=== PATIENT | female | born 1965 | race Caucasian/White ===

== ENCOUNTER 2019-09-04 15:11 | Inpatient (IN) ==
[2019-09-04 15:54] LABS: Hematocrit 34.1 % (35.3-44.9); Hemoglobin 11.6 g/dL (11.5-15.4); Immature Granulocytes % 0.5 % (0-4); Lymphocytes # 0.8 K/mcL (0.6-4.6); Lymphocytes % 13.2 %; Mean Corpuscular Hemoglobin 35.5 pg (28.0-33.3); Mean Corpuscular Volume 104.3 fL (83.0-100.0); Mean Platelet Volume 9.9 fL (9.4-12.4); Monocytes # 0.6 K/mcL (0.0-1.3); Monocytes % 9.3 %; Neutrophils # 4.6 K/mcL (1.6-8.9); Platelet Count 166 K/mcL (140-400); Red Blood Count 3.27 M/mcL (3.82-4.97); Red Cell Distribution Width 18.1 % (11.5-14.5)
[2019-09-04] MEDS ORDERED: Isovue-370 500 ML BOTTLE IVP ONE ×2 (16:10→17:08)
[2019-09-04] MEDS ORDERED: *HR* HYDROmorphone (PF) 1 MG/ML SYRINGE IVP ONE ×2 (16:10→18:21)
[2019-09-04] MEDS ORDERED: Ondansetron 4 MG/2 ML VIAL IVP ONE (16:10)
[2019-09-04] MEDS ORDERED: 0.9 % Sodium Chloride 1,000 ML IVC ONE (16:10)
[2019-09-04 16:14] LABS: Alanine Aminotransferase 68 Units/L (7-52); Albumin 4.2 g/dL (3.5-5.7); Albumin/Globulin Ratio 1.4 (1.1-2.2); Alkaline Phosphatase 62 Units/L (34-104); Aspartate Amino Transferase 55 Units/L (13-39); BUN/Creatinine Ratio 11 (6-26); Bilirubin,Total 0.4 mg/dL (0.3-1.0); Blood Urea Nitrogen 8 mg/dL (6-20); Calcium 9.2 mg/dL (8.6-10.3); Carbon Dioxide 25 mEq/L (23-29); Chloride 98 mEq/L (98-107); Globulin 2.9 g/dL (2.4-3.5); Glucose 140 mg/dL (70-105); Osmolality,Calculated 281 (280-300); Potassium 3.6 mEq/L (3.5-5.1); Sodium 135 mEq/L (136-145); Total Protein 7.1 g/dL (6.4-8.9); Troponin I < 0.03 ng/mL (< 0.04); eGFR For African Americans > 60 (> 60); eGFR For Non-African Americans > 60 (> 60)
[2019-09-04] MEDS: *HR* LORazepam 2 MG/ML VIAL IVP ONE (16:23)
[2019-09-04 16:47] LABS: Bilirubin,Urine Negative (Negative); Blood,Urine Negative (Negative); Clarity,Urine Clear (Clear); Color,Urine Yellow (Yellow); Glucose,Urine (UA) Normal (Normal); Ketones,Urine Negative (Negative); Leukocyte Esterase,Urine Negative (Negative); Nitrite,Urine Negative (Negative); Protein,Urine Negative (Neg-Trace); Urobilinogen,Urine Normal (Normal)
[2019-09-04 17:08] LABS: Albumin 3.8 g/dL (3.5-5.7); Albumin/Globulin Ratio 1.6 (1.1-2.2); Bilirubin,Direct 0.1 mg/dL (0.0-0.2); Bilirubin,Indirect 0.2 mg/dL (0.0-1.0); Bilirubin,Total 0.3 mg/dL (0.3-1.0); Globulin 2.4 g/dL (2.4-3.5); Total Protein 6.2 g/dL (6.4-8.9)
[2019-09-04 17:52] LABS: Uric Acid 5.1 mg/dL (2.3-7.6)
[2019-09-04] MEDS ORDERED: Naloxone 0.4 MG/ML INJ IVP PRN (21:17)
[2019-09-04] MEDS: lamoTRIgine 25 MG TABLET PO SCH (21:43)
[2019-09-04] MEDS: predniSONE 5 MG TABLET PO SCH (21:43)
[2019-09-04] MEDS: *HR* Heparin 5,000 UNIT/ML VIAL SQ SCH (21:43)
[2019-09-04] MEDS: *HR* LORazepam 1 MG TABLET PO SCH (21:43)
[2019-09-04] MEDS: *HR* OxyCODONE/APAP 10/325 TABLET PO PRN (21:45)
[2019-09-04] MEDS: *HR* OxyCODONE ER (12 HR) 40 MG TABLET PO SCH (22:36)
[2019-09-05 02:48] LABS: Basophils % 0.2 %; Eosinophils % 0.5 %; Hematocrit 29.2 % (35.3-44.9); Hemoglobin 9.4 g/dL (11.5-15.4); Immature Granulocytes % 0.4 % (0-4); Immature Reticulocyte % 29.6 % (11.0-38.0); Lymphocytes # 1.1 K/mcL (0.6-4.6); Lymphocytes % 19.1 %; Mean Corpuscular HGB Conc 32.2 g/dL (31.6-35.5); Mean Corpuscular Hemoglobin 35.2 pg (28.0-33.3); Mean Corpuscular Volume 109.4 fL (83.0-100.0); Mean Platelet Volume 9.7 fL (9.4-12.4); Monocytes # 0.7 K/mcL (0.0-1.3); Monocytes % 11.8 %; Neutrophils # 3.8 K/mcL (1.6-8.9); Platelet Count 122 K/mcL (140-400); Red Blood Count 2.67 M/mcL (3.82-4.97); Red Cell Distribution Width 18.2 % (11.5-14.5); Retculocyte # 0.13 M/mcL (0.05-0.10); Reticulocyte % 4.8 % (1.6-2.8); White Blood Count 5.6 K/mcL (4.3-11.1)
[2019-09-05 02:51] LABS: INR 1.3; Prothrombin Time 14.2 Seconds (9.4-12.1)
[2019-09-05 03:11] LABS: Alanine Aminotransferase 53 Units/L (7-52); Albumin 3.6 g/dL (3.5-5.7); Albumin/Globulin Ratio 1.6 (1.1-2.2); Alkaline Phosphatase 51 Units/L (34-104); Aspartate Amino Transferase 40 Units/L (13-39); BUN/Creatinine Ratio 12 (6-26); Bilirubin,Total 0.4 mg/dL (0.3-1.0); Blood Urea Nitrogen 6 mg/dL (6-20); Calcium 8.5 mg/dL (8.6-10.3); Carbon Dioxide 24 mEq/L (23-29); Chloride 104 mEq/L (98-107); Chol/HDL Ratio 2.8 (0-4.9); Cholesterol 124 mg/dL (< 200); Globulin 2.3 g/dL (2.4-3.5); Glucose 122 mg/dL (70-105); HDL Cholesterol 44 mg/dL (40-59); LDL Cholesterol,Calculated 62 mg/dL (0-99); Lactate Dehydrogenase 278 Units/L (140-271); Magnesium 1.7 mg/dL (1.6-2.6); Osmolality,Calculated 283 (280-300); Phosphorous 3.1 mg/dL (2.7-4.5); Potassium 3.6 mEq/L (3.5-5.1); Sodium 137 mEq/L (136-145); Total Protein 5.9 g/dL (6.4-8.9); Triglycerides 89 mg/dL (< 150); eGFR For African Americans > 60 (> 60); eGFR For Non-African Americans > 60 (> 60)
[2019-09-05 03:24] LABS: Thyroid Stimulating Hormone 0.704 mcIU/mL (0.340-5.600)
[2019-09-05 03:28] LABS: Folate 12.4 ng/mL (3.0-16.0)
[2019-09-05] MEDS: *HR* OxyCODONE/APAP 10/325 TABLET PO PRN ×4 (03:45→22:48)
[2019-09-05] MEDS ORDERED: *HR* OxyCODONE ER (12 HR) 40 MG TABLET PO SCH (06:00)
[2019-09-05] MEDS: *HR* Heparin 5,000 UNIT/ML VIAL SQ SCH ×3 (06:29→20:05)
[2019-09-05] MEDS: *HR* LORazepam 0.5 MG TABLET PO PRN ×2 (09:00→17:45)
[2019-09-05] MEDS: *HR* OxyCODONE ER (12 HR) 40 MG TABLET PO SCH ×2 (09:00→20:05)
[2019-09-05] MEDS: lamoTRIgine 25 MG TABLET PO SCH ×2 (09:01→20:05)
[2019-09-05] MEDS: BuPROPion SR (12 HR) 100 MG TABLET PO SCH (09:01)
[2019-09-05] MEDS: predniSONE 5 MG TABLET PO SCH ×2 (09:01→20:05)
[2019-09-05] MEDS: Ondansetron ODT 4 MG TAB.RAPDIS PO PRN (10:01)
[2019-09-05] MEDS: Ringers Solution, Lactated 1,000 ML IVC SCH (13:23)
[2019-09-05] MEDS ORDERED: *HR* Promethazine 25 MG/ML VIAL IVP PRN (14:01)
[2019-09-05] MEDS: Sennosides/Docusate Sodium TABLET PO SCH ×2 (14:38→20:05)
[2019-09-05] MEDS: *HR* LORazepam 1 MG TABLET PO SCH (20:05)
[2019-09-06] MEDS: *HR* LORazepam 0.5 MG TABLET PO PRN ×3 (00:06→14:27)
[2019-09-06] MEDS: *HR* OxyCODONE/APAP 10/325 TABLET PO PRN (03:40)
[2019-09-06 04:31] LABS: Basophils % 0.1 %; Eosinophils % 0.5 %; Hematocrit 31.6 % (35.3-44.9); Hemoglobin 10.3 g/dL (11.5-15.4); Immature Granulocytes % 0.5 % (0-4); Lymphocytes # 1.7 K/mcL (0.6-4.6); Lymphocytes % 20.1 %; Mean Corpuscular HGB Conc 32.6 g/dL (31.6-35.5); Mean Corpuscular Volume 107.5 fL (83.0-100.0); Mean Platelet Volume 10.2 fL (9.4-12.4); Monocytes # 0.9 K/mcL (0.0-1.3); Monocytes % 10.6 %; Neutrophils # 5.7 K/mcL (1.6-8.9); Nucleated Red Blood Cells 0.2 /100 WBC (0); Platelet Count 197 K/mcL (140-400); Red Blood Count 2.94 M/mcL (3.82-4.97); Red Cell Distribution Width 18.5 % (11.5-14.5); Segmented Neutrophils % 68.2 %; White Blood Count 8.3 K/mcL (4.3-11.1)
[2019-09-06 04:46] LABS: BUN/Creatinine Ratio 14 (6-26); Blood Urea Nitrogen 9 mg/dL (6-20); Calcium 9.5 mg/dL (8.6-10.3); Carbon Dioxide 25 mEq/L (23-29); Chloride 99 mEq/L (98-107); Glucose 156 mg/dL (70-105); Lipase 366 Units/L (11-82); Osmolality,Calculated 288 (280-300); Potassium 3.8 mEq/L (3.5-5.1); Sodium 138 mEq/L (136-145); eGFR For African Americans > 60 (> 60); eGFR For Non-African Americans > 60 (> 60)
[2019-09-06] MEDS: Ringers Solution, Lactated 1,000 ML IVC SCH (05:25)
[2019-09-06] MEDS: *HR* Heparin 5,000 UNIT/ML VIAL SQ SCH ×2 (06:07→12:16)
[2019-09-06] MEDS: Sennosides/Docusate Sodium TABLET PO SCH (08:18)
[2019-09-06] MEDS: *HR* OxyCODONE ER (12 HR) 40 MG TABLET PO SCH (08:18)
[2019-09-06] MEDS: BuPROPion SR (12 HR) 100 MG TABLET PO SCH (08:18)
[2019-09-06] MEDS: lamoTRIgine 25 MG TABLET PO SCH (08:19)
[2019-09-06] MEDS: predniSONE 5 MG TABLET PO SCH (08:20)
[2019-09-06] MEDS: Ondansetron ODT 4 MG TAB.RAPDIS PO PRN (08:34)
[2019-09-06] MEDS ORDERED: *HR* LORazepam 2 MG/ML VIAL IVP ONE (09:41)
[2019-09-06] MEDS: *HR* LORazepam 2 MG/ML VIAL IVP ONE (10:17)
[2019-09-06 11:03] LABS: Estimated Average Glucose 140 mg/dl
[2019-09-06] MEDS ORDERED: *HR* FentaNYL (PF) 100 MCG/2 ML VIAL IVP ONE (11:23)
[2019-09-06 11:42] VITALS: BP 160/107
[2019-09-06] MEDS ORDERED: *HR* OxyCODONE Immed Rel 15 MG TABLET PO PRN (12:31)
[2019-09-06] MEDS ORDERED: Lactulose Oral Soln 20 GM/30 ML UDC PO PRN (12:39)
[2019-09-06] MEDS ORDERED: Milk and Molasses Enema 200 ML RC ONE (14:00)
[2019-09-06] MEDS ORDERED: Sennosides/Docusate Sodium TABLET PO SCH (21:00)
== END 2019-09-06 15:01 | disposition hospice, home (50) | DRG 861 ==
LOC: 3BNU 15:11 → EMEROOARM 15:11 → 3BNU 19:45
PROVIDERS: ADMIT Internal Medicine; ATTEND Internal Medicine

== ENCOUNTER 2019-09-24 11:14 | Inpatient (IN) ==
[2019-09-24 16:21] LABS: Clarity,Urine Slightly Cloudy (Clear); Color,Urine Orange (Yellow)
[2019-09-24 16:22] LABS: Bacteria,Urine Few per hpf (None-Few); Squamous Epithelial Cell,Urine Few per lpf (None-Few)
[2019-09-24] MEDS: *HR* OxyCODONE Immed Rel 15 MG TABLET PO PRN (16:57)
[2019-09-24] MEDS: predniSONE 5 MG TABLET PO SCH (20:25)
[2019-09-24] MEDS: Sennosides/Docusate Sodium TABLET PO SCH (20:25)
[2019-09-24] MEDS: lamoTRIgine 25 MG TABLET PO SCH (20:26)
[2019-09-24] MEDS: Morphine Sulfate ER (12 HR) 30 MG TABLET.ER PO SCH (20:26)
[2019-09-25] MEDS: *HR* OxyCODONE Immed Rel 15 MG TABLET PO PRN ×5 (00:54→20:06)
[2019-09-25] MEDS: Morphine Sulfate ER (12 HR) 30 MG TABLET.ER PO SCH ×2 (06:18→16:56)
[2019-09-25] MEDS: predniSONE 10 MG TABLET PO SCH (07:45)
[2019-09-25] MEDS: BuPROPion SR (12 HR) 100 MG TABLET PO SCH (07:45)
[2019-09-25] MEDS: Sennosides/Docusate Sodium TABLET PO SCH ×2 (07:45→20:06)
[2019-09-25] MEDS: Metoprolol XL (24 HR) Succ 50 MG TAB.ER.24H PO SCH (07:45)
[2019-09-25] MEDS: lamoTRIgine 25 MG TABLET PO SCH ×2 (07:45→20:06)
[2019-09-25] MEDS: cefTRIAXone 1,000 MG in Water for inj. (sterile) 10 ML IVP SCH (13:30)
[2019-09-25] MEDS: predniSONE 5 MG TABLET PO SCH (16:57)
[2019-09-26] MEDS: *HR* OxyCODONE Immed Rel 15 MG TABLET PO PRN ×6 (03:08→21:47)
[2019-09-26] MEDS: Morphine Sulfate ER (12 HR) 30 MG TABLET.ER PO SCH ×3 (05:34→19:32)
[2019-09-26] MEDS: BuPROPion SR (12 HR) 100 MG TABLET PO SCH (08:03)
[2019-09-26] MEDS: predniSONE 10 MG TABLET PO SCH (08:03)
[2019-09-26] MEDS: Sennosides/Docusate Sodium TABLET PO SCH ×2 (08:04→19:29)
[2019-09-26] MEDS: lamoTRIgine 25 MG TABLET PO SCH ×2 (08:04→19:33)
[2019-09-26] MEDS: Metoprolol XL (24 HR) Succ 50 MG TAB.ER.24H PO SCH (08:04)
[2019-09-26] MEDS: cefTRIAXone 1,000 MG in Water for inj. (sterile) 10 ML IVP SCH (08:04)
[2019-09-26] MEDS ORDERED: *HR* HYDROmorphone 2 MG/ML SYRINGE IVP ONE (11:58)
[2019-09-26] MEDS: Trolamine Salicylate/Aloe Vera 85 APPL/85 GM TUBE TP PRN (16:39)
[2019-09-26] MEDS: predniSONE 5 MG TABLET PO SCH (17:46)
[2019-09-26] MEDS: Saliva Stimulant 100ml BOTTLE PO PRN ×2 (19:27→21:48)
[2019-09-26] MEDS: *HR* LORazepam 1 MG TABLET PO PRN (21:48)
[2019-09-27] MEDS: *HR* OxyCODONE Immed Rel 15 MG TABLET PO PRN ×5 (00:24→21:26)
[2019-09-27] MEDS: Trolamine Salicylate/Aloe Vera 85 APPL/85 GM TUBE TP PRN ×2 (02:44→19:49)
[2019-09-27] MEDS: Morphine Sulfate ER (12 HR) 30 MG TABLET.ER PO SCH (04:28)
[2019-09-27] MEDS: *HR* HYDROmorphone (PF) 1 MG/ML SYRINGE IVP PRN ×5 (05:03→19:40)
[2019-09-27] MEDS: predniSONE 10 MG TABLET PO SCH (07:53)
[2019-09-27] MEDS: lamoTRIgine 25 MG TABLET PO SCH ×2 (07:53→19:43)
[2019-09-27] MEDS: BuPROPion SR (12 HR) 100 MG TABLET PO SCH (07:53)
[2019-09-27] MEDS: Sennosides/Docusate Sodium TABLET PO SCH ×2 (07:53→19:44)
[2019-09-27] MEDS: Metoprolol XL (24 HR) Succ 50 MG TAB.ER.24H PO SCH (07:53)
[2019-09-27] MEDS: *HR* LORazepam 1 MG TABLET PO PRN (08:10)
[2019-09-27] MEDS ORDERED: Morphine Sulfate ER (12 HR) 30 MG TABLET.ER PO SCH (10:00)
[2019-09-27 16:42] LABS: Alanine Aminotransferase 22 Units/L (7-52); Albumin 3.5 g/dL (3.5-5.7); Albumin/Globulin Ratio 1.3 (1.1-2.2); Alkaline Phosphatase 77 Units/L (34-104); Aspartate Amino Transferase 27 Units/L (13-39); BUN/Creatinine Ratio 17 (6-26); Bilirubin,Total 0.5 mg/dL (0.3-1.0); Blood Urea Nitrogen 12 mg/dL (6-20); Carbon Dioxide 28 mEq/L (23-29); Chloride 91 mEq/L (98-107); Globulin 2.7 g/dL (2.4-3.5); Glucose 230 mg/dL (70-105); Osmolality,Calculated 273 (280-300); Potassium 4.1 mEq/L (3.5-5.1); Sodium 128 mEq/L (136-145); Total Protein 6.2 g/dL (6.4-8.9); eGFR For African Americans > 60 (> 60); eGFR For Non-African Americans > 60 (> 60)
[2019-09-27] MEDS: *HR* Methadone 10 MG TABLET PO SCH ×2 (16:56→23:56)
[2019-09-27] MEDS: predniSONE 5 MG TABLET PO SCH (16:57)
[2019-09-27] MEDS: Cefdinir 300 MG CAPSULE PO SCH (19:43)
[2019-09-28] MEDS: *HR* OxyCODONE Immed Rel 15 MG TABLET PO PRN ×8 (02:49→21:24)
[2019-09-28] MEDS: *HR* HYDROmorphone (PF) 1 MG/ML SYRINGE IVP PRN (06:20)
[2019-09-28] MEDS: Metoprolol XL (24 HR) Succ 50 MG TAB.ER.24H PO SCH (08:44)
[2019-09-28] MEDS: *HR* Methadone 10 MG TABLET PO SCH ×2 (08:45→15:56)
[2019-09-28] MEDS: predniSONE 10 MG TABLET PO SCH (08:45)
[2019-09-28] MEDS: lamoTRIgine 25 MG TABLET PO SCH ×2 (08:45→21:25)
[2019-09-28] MEDS: BuPROPion XL (24 HR) 150 MG TABLET PO SCH (08:45)
[2019-09-28] MEDS: Sennosides/Docusate Sodium TABLET PO SCH ×2 (08:45→21:25)
[2019-09-28] MEDS: Cefdinir 300 MG CAPSULE PO SCH ×2 (08:45→21:24)
[2019-09-28] MEDS: *HR* LORazepam 1 MG TABLET PO PRN (11:45)
[2019-09-28] MEDS: predniSONE 5 MG TABLET PO SCH (17:32)
[2019-09-29] MEDS: *HR* Methadone 10 MG TABLET PO SCH ×4 (01:01→23:04)
[2019-09-29] MEDS: *HR* OxyCODONE Immed Rel 15 MG TABLET PO PRN ×4 (01:06→09:12)
[2019-09-29] MEDS: BuPROPion XL (24 HR) 150 MG TABLET PO SCH (07:53)
[2019-09-29] MEDS: Sennosides/Docusate Sodium TABLET PO SCH ×2 (07:53→19:39)
[2019-09-29] MEDS: Cefdinir 300 MG CAPSULE PO SCH ×2 (07:53→19:39)
[2019-09-29] MEDS: *HR* HYDROmorphone (PF) 1 MG/ML SYRINGE IVP PRN (07:53)
[2019-09-29] MEDS: predniSONE 10 MG TABLET PO SCH (07:54)
[2019-09-29] MEDS: Metoprolol XL (24 HR) Succ 50 MG TAB.ER.24H PO SCH (07:54)
[2019-09-29] MEDS: lamoTRIgine 25 MG TABLET PO SCH ×2 (07:54→19:39)
[2019-09-29] MEDS ORDERED: Furosemide 40 MG/4 ML VIAL IVP ONE (09:35)
[2019-09-29] MEDS ORDERED: *HR* OxyCODONE Immed Rel 15 MG TABLET PO PRN (09:50)
[2019-09-29] MEDS: [UNRECOGNIZED DRUG - OTHER] PO PRN ×5 (11:59→23:04)
[2019-09-29] MEDS: predniSONE 5 MG TABLET PO SCH (16:32)
[2019-09-29] MEDS: *HR* LORazepam 1 MG TABLET PO PRN (16:32)
[2019-09-30] MEDS: [UNRECOGNIZED DRUG - OTHER] PO PRN ×10 (01:24→23:26)
[2019-09-30] MEDS: BuPROPion XL (24 HR) 150 MG TABLET PO SCH (08:14)
[2019-09-30] MEDS: *HR* Methadone 10 MG TABLET PO SCH ×2 (08:14→16:09)
[2019-09-30] MEDS: predniSONE 10 MG TABLET PO SCH (08:15)
[2019-09-30] MEDS: Furosemide 20 MG TABLET PO SCH (08:15)
[2019-09-30] MEDS: Cefdinir 300 MG CAPSULE PO SCH (08:15)
[2019-09-30] MEDS: lamoTRIgine 25 MG TABLET PO SCH ×2 (08:15→21:03)
[2019-09-30] MEDS: Sennosides/Docusate Sodium TABLET PO SCH ×2 (08:15→21:03)
[2019-09-30] MEDS: Metoprolol XL (24 HR) Succ 50 MG TAB.ER.24H PO SCH (08:16)
[2019-09-30] MEDS: *HR* LORazepam 1 MG TABLET PO PRN ×2 (10:35→16:58)
[2019-09-30] MEDS: predniSONE 5 MG TABLET PO SCH (16:59)
[2019-10-01] MEDS: *HR* Methadone 10 MG TABLET PO SCH ×4 (01:46→23:43)
[2019-10-01] MEDS: [UNRECOGNIZED DRUG - OTHER] PO PRN ×10 (01:52→22:17)
[2019-10-01] MEDS: Sennosides/Docusate Sodium TABLET PO SCH ×2 (08:45→20:19)
[2019-10-01] MEDS: lamoTRIgine 25 MG TABLET PO SCH ×2 (08:46→20:19)
[2019-10-01] MEDS: Furosemide 20 MG TABLET PO SCH (08:46)
[2019-10-01] MEDS: Metoprolol XL (24 HR) Succ 50 MG TAB.ER.24H PO SCH (08:46)
[2019-10-01] MEDS: BuPROPion XL (24 HR) 150 MG TABLET PO SCH (08:46)
[2019-10-01] MEDS: predniSONE 10 MG TABLET PO SCH (08:46)
[2019-10-01] MEDS: Nystatin SUSP 5 ML UD.LIQ PO SCH ×3 (13:44→20:19)
[2019-10-01] MEDS: predniSONE 5 MG TABLET PO SCH (16:31)
[2019-10-02] MEDS: [UNRECOGNIZED DRUG - OTHER] PO PRN ×5 (00:34→23:16)
[2019-10-02] MEDS: BuPROPion XL (24 HR) 150 MG TABLET PO SCH (09:31)
[2019-10-02] MEDS: Metoprolol XL (24 HR) Succ 50 MG TAB.ER.24H PO SCH (09:31)
[2019-10-02] MEDS: Nystatin SUSP 5 ML UD.LIQ PO SCH ×4 (09:32→21:44)
[2019-10-02] MEDS: *HR* Methadone 10 MG TABLET PO SCH ×2 (09:32→16:41)
[2019-10-02] MEDS: Sennosides/Docusate Sodium TABLET PO SCH ×2 (09:33→21:43)
[2019-10-02] MEDS: lamoTRIgine 25 MG TABLET PO SCH ×2 (09:33→21:45)
[2019-10-02] MEDS: Furosemide 20 MG TABLET PO SCH (09:33)
[2019-10-02] MEDS: predniSONE 5 MG TABLET PO SCH ×2 (09:33→16:42)
[2019-10-02] MEDS: *HR* OxyCODONE Immed Rel 15 MG TABLET PO PRN ×2 (13:56→16:43)
[2019-10-02] MEDS: *HR* LORazepam 1 MG TABLET PO PRN (14:10)
[2019-10-02] MEDS ORDERED: *HR* OxyCODONE Immed Rel 5 MG TABLET PO PRN (22:58)
[2019-10-03] MEDS: *HR* Methadone 10 MG TABLET PO SCH ×4 (00:47→23:20)
[2019-10-03] MEDS: [UNRECOGNIZED DRUG - OTHER] PO PRN ×8 (04:11→23:20)
[2019-10-03] MEDS: BuPROPion XL (24 HR) 150 MG TABLET PO SCH (09:41)
[2019-10-03] MEDS: predniSONE 5 MG TABLET PO SCH ×2 (09:42→17:54)
[2019-10-03] MEDS: Metoprolol XL (24 HR) Succ 50 MG TAB.ER.24H PO SCH (09:42)
[2019-10-03] MEDS: Nystatin SUSP 5 ML UD.LIQ PO SCH ×4 (09:42→20:12)
[2019-10-03] MEDS: Furosemide 20 MG TABLET PO SCH (09:42)
[2019-10-03] MEDS: Sennosides/Docusate Sodium TABLET PO SCH (09:42)
[2019-10-03] MEDS: lamoTRIgine 25 MG TABLET PO SCH ×2 (09:42→20:12)
[2019-10-03] MEDS: *HR* LORazepam 1 MG TABLET PO PRN ×2 (11:58→17:59)
[2019-10-04] MEDS: [UNRECOGNIZED DRUG - OTHER] PO PRN ×7 (04:59→20:25)
[2019-10-04] MEDS: *HR* Methadone 10 MG TABLET PO SCH ×2 (07:47→15:16)
[2019-10-04] MEDS: Nystatin SUSP 5 ML UD.LIQ PO SCH ×4 (07:47→20:25)
[2019-10-04] MEDS: BuPROPion XL (24 HR) 150 MG TABLET PO SCH (07:48)
[2019-10-04] MEDS: Furosemide 20 MG TABLET PO SCH (07:48)
[2019-10-04] MEDS: Sennosides/Docusate Sodium TABLET PO SCH (07:48)
[2019-10-04] MEDS: lamoTRIgine 25 MG TABLET PO SCH ×2 (07:48→20:25)
[2019-10-04] MEDS: Metoprolol XL (24 HR) Succ 50 MG TAB.ER.24H PO SCH (07:48)
[2019-10-04] MEDS: predniSONE 5 MG TABLET PO SCH ×2 (07:49→17:25)
[2019-10-04] MEDS: *HR* LORazepam 1 MG TABLET PO PRN (12:42)
[2019-10-05] MEDS: *HR* Methadone 10 MG TABLET PO SCH ×3 (00:10→16:29)
[2019-10-05] MEDS: [UNRECOGNIZED DRUG - OTHER] PO PRN ×8 (00:11→22:07)
[2019-10-05] MEDS: *HR* LORazepam 1 MG TABLET PO PRN ×2 (06:37→15:38)
[2019-10-05] MEDS: BuPROPion XL (24 HR) 150 MG TABLET PO SCH (07:52)
[2019-10-05] MEDS: Nystatin SUSP 5 ML UD.LIQ PO SCH ×4 (07:53→19:55)
[2019-10-05] MEDS: Furosemide 20 MG TABLET PO SCH (07:53)
[2019-10-05] MEDS: predniSONE 5 MG TABLET PO SCH ×2 (07:53→16:29)
[2019-10-05] MEDS: Sennosides/Docusate Sodium TABLET PO SCH (07:53)
[2019-10-05] MEDS: Metoprolol XL (24 HR) Succ 50 MG TAB.ER.24H PO SCH (07:53)
[2019-10-05] MEDS: lamoTRIgine 25 MG TABLET PO SCH ×2 (07:53→19:56)
[2019-10-06] MEDS: *HR* Methadone 10 MG TABLET PO SCH ×4 (00:09→23:09)
[2019-10-06] MEDS: [UNRECOGNIZED DRUG - OTHER] PO PRN ×8 (02:17→23:08)
[2019-10-06] MEDS: Furosemide 20 MG TABLET PO SCH (07:36)
[2019-10-06] MEDS: BuPROPion XL (24 HR) 150 MG TABLET PO SCH (07:36)
[2019-10-06] MEDS: Nystatin SUSP 5 ML UD.LIQ PO SCH ×4 (07:37→20:56)
[2019-10-06] MEDS: Sennosides/Docusate Sodium TABLET PO SCH (07:37)
[2019-10-06] MEDS: lamoTRIgine 25 MG TABLET PO SCH ×2 (07:37→20:53)
[2019-10-06] MEDS: Metoprolol XL (24 HR) Succ 50 MG TAB.ER.24H PO SCH (07:37)
[2019-10-06] MEDS: *HR* LORazepam 1 MG TABLET PO PRN (07:37)
[2019-10-06] MEDS: predniSONE 5 MG TABLET PO SCH ×2 (07:38→17:29)
[2019-10-06] MEDS: diazePAM 5 MG TABLET PO SCH (20:52)
[2019-10-06] MEDS: Trolamine Salicylate/Aloe Vera 85 APPL/85 GM TUBE TP PRN (23:12)
[2019-10-07] MEDS: [UNRECOGNIZED DRUG - OTHER] PO PRN ×8 (00:48→22:03)
[2019-10-07] MEDS: diazePAM 5 MG TABLET PO SCH ×2 (08:40→19:42)
[2019-10-07] MEDS: Furosemide 20 MG TABLET PO SCH (08:40)
[2019-10-07] MEDS: *HR* Methadone 10 MG TABLET PO SCH ×2 (08:40→15:46)
[2019-10-07] MEDS: BuPROPion XL (24 HR) 150 MG TABLET PO SCH (08:40)
[2019-10-07] MEDS: Nystatin SUSP 5 ML UD.LIQ PO SCH ×4 (08:41→19:42)
[2019-10-07] MEDS: Sennosides/Docusate Sodium TABLET PO SCH (08:41)
[2019-10-07] MEDS: lamoTRIgine 25 MG TABLET PO SCH ×2 (08:41→19:42)
[2019-10-07] MEDS: Metoprolol XL (24 HR) Succ 50 MG TAB.ER.24H PO SCH (08:41)
[2019-10-07] MEDS: predniSONE 5 MG TABLET PO SCH ×2 (08:41→16:48)
[2019-10-08] MEDS: [UNRECOGNIZED DRUG - OTHER] PO PRN ×8 (00:32→20:36)
[2019-10-08] MEDS: *HR* Methadone 10 MG TABLET PO SCH ×4 (00:32→23:44)
[2019-10-08] MEDS: Sennosides/Docusate Sodium TABLET PO SCH (07:50)
[2019-10-08] MEDS: predniSONE 5 MG TABLET PO SCH ×2 (07:50→17:15)
[2019-10-08] MEDS: Furosemide 20 MG TABLET PO SCH (07:50)
[2019-10-08] MEDS: BuPROPion XL (24 HR) 150 MG TABLET PO SCH (07:50)
[2019-10-08] MEDS: Metoprolol XL (24 HR) Succ 50 MG TAB.ER.24H PO SCH (07:51)
[2019-10-08] MEDS: diazePAM 5 MG TABLET PO SCH ×2 (07:51→21:37)
[2019-10-08] MEDS: lamoTRIgine 25 MG TABLET PO SCH ×2 (07:51→20:37)
[2019-10-08] MEDS: Nystatin SUSP 5 ML UD.LIQ PO SCH ×4 (07:52→20:37)
[2019-10-09] MEDS: [UNRECOGNIZED DRUG - OTHER] PO PRN ×6 (00:41→21:13)
[2019-10-09] MEDS: BuPROPion XL (24 HR) 150 MG TABLET PO SCH (07:59)
[2019-10-09] MEDS: Nystatin SUSP 5 ML UD.LIQ PO SCH ×4 (07:59→20:34)
[2019-10-09] MEDS: Metoprolol XL (24 HR) Succ 50 MG TAB.ER.24H PO SCH (08:00)
[2019-10-09] MEDS: *HR* Methadone 10 MG TABLET PO SCH ×2 (08:00→15:59)
[2019-10-09] MEDS: lamoTRIgine 25 MG TABLET PO SCH ×2 (08:01→20:34)
[2019-10-09] MEDS: Furosemide 20 MG TABLET PO SCH (08:01)
[2019-10-09] MEDS: diazePAM 5 MG TABLET PO SCH ×2 (08:01→20:33)
[2019-10-09] MEDS: predniSONE 5 MG TABLET PO SCH ×2 (08:01→18:10)
[2019-10-09] MEDS: Sennosides/Docusate Sodium TABLET PO SCH (08:02)
[2019-10-10] MEDS: *HR* Methadone 10 MG TABLET PO SCH ×2 (00:11→07:44)
[2019-10-10] MEDS: [UNRECOGNIZED DRUG - OTHER] PO PRN ×4 (02:01→12:34)
[2019-10-10] MEDS: Nystatin SUSP 5 ML UD.LIQ PO SCH (07:44)
[2019-10-10] MEDS: lamoTRIgine 25 MG TABLET PO SCH (07:45)
[2019-10-10] MEDS: BuPROPion XL (24 HR) 150 MG TABLET PO SCH (07:45)
[2019-10-10] MEDS: predniSONE 5 MG TABLET PO SCH (07:45)
[2019-10-10] MEDS: Furosemide 20 MG TABLET PO SCH (07:45)
[2019-10-10] MEDS: diazePAM 5 MG TABLET PO SCH (07:45)
[2019-10-10] MEDS: Sennosides/Docusate Sodium TABLET PO SCH (07:45)
[2019-10-10] MEDS: Metoprolol XL (24 HR) Succ 50 MG TAB.ER.24H PO SCH (07:46)
[2019-10-10 08:06] VITALS: BP 124/93
== END 2019-10-10 13:05 | disposition hospice, home (50) | DRG 181 ==
LOC: 2ANU 13:37
PROVIDERS: ADMIT Internal Medicine Hospice and Palliative Medicine; ATTEND Internal Medicine Hospice and Palliative Medicine

== ENCOUNTER 2019-10-15 01:58 | Observation (INO) ==
[2019-10-15 03:12] VITALS: BP 111/77
[2019-10-15] MEDS ORDERED: *HR* HYDROmorphone 2 MG/ML SYRINGE IVP PRN (03:19)
[2019-10-15] MEDS ORDERED: *HR* HYDROmorphone 2 MG/ML SYRINGE IVP ONE ×2 (03:19→05:09)
[2019-10-15] MEDS ORDERED: *HR* LORazepam Oral Conc 2 MG/ML PO PRN (03:24)
[2019-10-15] MEDS ORDERED: *HR* HYDROmorphone 20 MG/20 ML PCA IVC PRN (05:20)
== END 2019-10-15 05:26 | disposition expired ==
LOC: 2ANU
PROVIDERS: ADMIT Internal Medicine Hospice and Palliative Medicine; ATTEND Internal Medicine Hospice and Palliative Medicine